=== PATIENT | male | born 1955 | race Caucasian/White ===

== ENCOUNTER 2020-10-04 05:07 | Emergency (ER) | payer MEDICARE, SELFPAY ==
--- NOTE | ~2020-10-04 | CT_ITS ---
EXAMINATION: CT abdomen pelvis w con INDICATION: Abdominal pain TECHNIQUE: Computed tomographic images of the abdomen and pelvis were obtained after the administrati on of 100 cc of Omnipaque 350 intravenous contrast. The dose-length product (DLP) was 476.12 mGy-cm. Automated exposure control and iterative reconstruction technique were employed. COMPARISON: None available FINDINGS: Minimal dependent atelectasis is present in the lung bases. The heart size is normal. The g allbladder is surgically absent. There is mild enlargement of the common bile duct and central intrah epatic ducts which is likely due to post cholecystectomy state. Cysts of the liver measure up to 8 mm in the left hepatic lobe. Punctate calcification is noted in the tail of the pancreas, consistent wi th chronic pancreatitis. The adrenal glands are unremarkable. There are six nonobstructing stones in the left kidney, the largest of which measures 9 mm in the upper pole there are four nonobstructing r ight kidney stones measuring up to 5 mm. No pathologically enlarged abdominal or pelvic lymph nodes a re identified. Colonic diverticulosis is present without evidence of diverticulitis. There is a moder ate volume of colonic stool, particularly in the right colon. There is some formed stool in nondilate d loops of small bowel, suggestive of slow transit. There are changes of anterior and posterior fusio n at L4-5. IMPRESSION: 1. No CT correlate for the patient's symptoms. 2. Bilateral nonobstructing nephrolithiasis. Reviewed, dictated and finalized at location A.
[2020-10-04 05:15] VITALS: BP 180/110; PULSE 98; RESP 16; TEMP 36.4; O2SAT 98
--- NOTE | 2020-10-04 05:18 | ECG_ITS ---
Measurements Intervals [place] Rate: 84 P: 69 [place]: 183 QRS: -19 QRSD: 95 T: 69 QT: 360 QTc: 426 Interpretive Statements SINUS RHYTHM NORMAL ECG Electronically Signed On 10-04-2020 7:01:49 CDT by Karl Whyte D.O.
--- NOTE | 2020-10-04 05:21 | ED.GENADULT ---
HPI - General Adult General Chief complaint: Abdominal Pain Stated complaint: Abd pain Time Seen by Provider: 10/04/20 05:15 History of Present Illness HPI narrative: Patient is six 5-year-old gentleman who presents the emergency department with chief complaint of abdominal pain. The patient reports he has discomfort on the right side of his abdomen reports that it worse with movement and improved with rest. The patient states it feels similar to whenever he had appendicitis in the past but has had his appendix removed and his gallbladder removed. Patient reports he has history of kidney stones this feels different from his prior kidney stone episodes. Patient reports that he is a non-smoker denies any prior history of pancreatitis. Patient denies fever chills reports a little bit of nausea with this but no vomiting or diarrhea. Related Data Allergies Allergy/AdvReac Type Severity Reaction Status Date / Time No Known Allergies Allergy Verified 10/04/20 05:21 Review of Systems Review of Systems: Narrative: A 10 system review of systems was completed on the patient and is negative except for what is stated in the HPI. Nursing and ancillary documentation was reviewed. PMFSH Comments Patient reports past medical history significant for kidney stones Surgical history significant for cholecystectomy, appendectomy Social history the patient denies illicit drug use and denies smoking Exam Narrative: Exam Narrative: GENERAL: Well-appearing, well-nourished, and in no acute distress. HEAD: Normocephalic, atraumatic. EYES: PERRLA and EOMI. ENT: Nares clear, no rhinorrhea or epistaxis. Mucous membranes moist. NECK: Supple. CHEST: Clear to auscultation. No respiratory distress. HEART: Regular rate and rhythm. No murmur heard. Normal peripheral pulses. ABDOMEN: Soft, tender to palpation in the right upper and right lower quadrant, nondistended, normal active bowel sounds. EXTREMITIES: Normal range of motion. No edema. SKIN: Warm, dry, no rash. NEURO: No focal deficits. Alert and oriented x3. PSYCH: Normal mood and affect. Course Vital Signs Vital signs: Vital Signs Temperature 36.4 C 10/04/20 05:15 Pulse Rate 98 10/04/20 05:15 Respiratory Rate 16 10/04/20 05:15 Blood Pressure 180/110 H 10/04/20 05:15 Pulse Oximetry 98 10/04/20 05:15 Temperature 36.4 C 10/04/20 05:15 Pulse Rate 81 05/07/21 06:35 Respiratory Rate 20 10/04/20 06:35 Blood Pressure 171/106 H 10/04/20 06:35 Pulse Oximetry 99 10/04/20 06:35 Medical Decision Making Vital Signs Vital Signs: Vital Signs Temperature 36.4 C 10/04/20 05:15 Pulse Rate 98 10/04/20 05:15 Respiratory Rate 16 10/04/20 05:15 Blood Pressure 180/110 H 10/04/20 05:15 Pulse Oximetry 98 10/04/20 05:15 Temperature 36.4 C 10/04/20 05:15 Pulse Rate 81 10/04/20 06:35 Respiratory Rate 20 10/04/20 06:35 Blood Pressure 171/106 H 10/04/20 06:35 Pulse Oximetry 99 10/04/20 06:35 Lab Data Result diagrams: 10/04/20 05:36 10/04/20 05:36 Labs: Lab Results 10/04/20 10/04/20 10/04/20 Range/Units 05:36 05:36 05:36 WBC 6.3 (4.5-10.0) K/mm3 RBC 5.54 (4.6-6.20) M/mm3 Hgb 17.8 (14.0-18.0) g/dL Hct 50.8 (42.0-52.0) % MCV 91.7 (80-100) fl MCH 32.1 (26-34) pg MCHC 35.0 (32-36) g/dl RDW 12.6 (11.5-14.5) % Plt Count 265 (150-375) k/mm3 MPV 8.6 (7.4-10.4) fl Immature Gran % (Auto) 0.3 (0-0.5) % Neut % (Auto) 66.5 (45.5-73.1) % Lymph % (Auto) 23.4 (18.3-44.2) % Reeves % (Auto) 8.9 H (2.6-8.5) % Eos % (Auto) 0.6 (0-4.4) % Baso % (Auto) 0.3 (0.2-1.2) % Lymph # (Auto) 1.47 (0.9-3.2) K/mm3 Reeves # (Auto) 0.6 (0.1-0.6) K/mm3 Eos # (Auto) 0.0 (0-0.3) K/mm3 Baso # (Auto) 0.0 (0.0-0.1) K/mm3 Abs Immat Gran (auto) 0.02 (0.00-0.031) K/mm3 Absolute Neuts (auto) 4.2 (1.3-6.7) K/mm3 Absolute Nucleated RBC
[2020-10-04] MEDS: SODIUM CHLORIDE 0.9% IV 1,000 ML 999 ML IV CONT (05:29)
[2020-10-04] MEDS: ONDANSETRON INJ 4 MG/2 ML VIAL IV PUSH (05:29)
[2020-10-04] MEDS: MORPHINE SULFATE (*CRX) 4 MG/ML INJ IV PUSH (05:29)
[2020-10-04 05:57] LABS: Basophils Percent Auto 0.3 % (0.2-1.2); Eosinophils Percent Auto 0.6 % (0-4.4); Hematocrit 50.8 % (42.0-52.0); Hemoglobin 17.8 g/dL (14.0-18.0); Immature Granulocyte Absolute 0.02 K/mm3 (0.00-0.031); Immature Granulocyte Percent A 0.3 % (0-0.5); Lymphocytes Absolute Auto 1.47 K/mm3 (0.9-3.2); Lymphocytes Percent Auto 23.4 % (18.3-44.2); Mean Corpuscular Hemoglobin 32.1 pg (26-34); Mean Corpuscular Volume 91.7 fl (80-100); Mean Platelet Volume 8.6 fl (7.4-10.4); Monocytes Absolute Auto 0.6 K/mm3 (0.1-0.6); Monocytes Percent Auto 8.9 % (2.6-8.5); Neutrophils Absolute Auto 4.2 K/mm3 (1.3-6.7); Neutrophils Percent Auto 66.5 % (45.5-73.1); Platelet Count Result 265 k/mm3 (150-375); Red Blood Count 5.54 M/mm3 (4.6-6.20); Red Cell Distribution Width 12.6 % (11.5-14.5); White Blood Count 6.3 K/mm3 (4.5-10.0)
[2020-10-04 06:05] LABS: Alanine Aminotransferase 22 U/L (4-50); Albumin Level 5.1 g/dL (3.5-5.1); Alkaline Phosphatase 65 U/L (38-126); Anion Gap 7 mmol/L (8-16); Aspartate Amino Transferase 36 U/L (17-59); Bilirubin,Total 1.3 mg/dL (0.2-1.3); Blood Urea Nitrogen 10 mg/dL (9-20); Calcium 9.9 mg/dL (8.4-10.2); Carbon Dioxide 30 mmol/L (22-30); Chloride 101 mmol/L (98-107); Estimated CRCL calculation 86 ml/min; Estimated Glomerular Filt Rate > 60; Glucose 131 mg/dL (75-110); Lipase 96 U/L (23-300); Potassium 4.2 mmol/L (3.4-5.0); Sodium 138 mmol/L (137-145)
[2020-10-04 06:06] LABS: Lactic Acid Reflex 0.7 mmol/L (0.7-2.1)
[2020-10-04 06:07] LABS: Add Urine Microscopic? YES; Appearance Urine Clear (Clear); Bilirubin Urine Negative (Negative); Blood Urine Negative (Negative); Color Urine Yellow (Yellow); Glucose Urine UA Negative (Negative); Ketones Urine Trace mg/dL (Negative); Leukocyte Esterase Ur Negative LEU/UL (Negative); Mucus Urine Rare /lpf; Nitrate Urine Negative (Negative); Protein Urine 1+ mg/dL (Negative); RBC Urine 0-2 /hpf (0-2); Specific Grav Ur 1.019 (1.001-1.035); WBC Urine 0-3 /hpf
[2020-10-04 06:17] LABS: Troponin I < 0.012 ng/mL (0.000-0.034)
[2020-10-04] MEDS: DICYCLOMINE HCL INJ 20 MG/2 ML VIAL IM (06:34)
[2020-10-04 06:35] VITALS: BP 171/106; PULSE 81; RESP 20; O2SAT 99
[2020-10-04 07:34] VITALS: BP 157/100; PULSE 74; RESP 16; O2SAT 98
== END 2020-10-04 07:35 | disposition home or self-care (01) ==
PROVIDERS: Emergency Provider Emergency Medicine
DX: R10.84 Generalized abdominal pain (principal); Z87.442 Personal history of urinary calculi
CPT/HCPCS: 36415; 74177; 80053; 81001; 83605; 83690; 84484; 85025; 93005; 96361; 96372; 96374; 96375; 99284; J0500; J2270; J2405; J7030; Q9967